=== PATIENT | male | born 1955 ===

== ENCOUNTER → 2021-01-26 06:53 | Outpatient (CLI) | payer OTHER ==
[~2021-01-26 06:53] MED LIST: SYNTHROID100 MCG PO; SYNTHROID112 MCG PO; TAMS0.4C PO
== END | disposition home or self-care (01) ==
LOC: LAB 06:53
PROVIDERS: ATTEND Urology
DX: R07.89 Other chest pain (principal); Z01.810 Encounter for preprocedural cardiovascular examination; I10 Essential (primary) hypertension; N40.1 Benign prostatic hyperplasia with lower urinary tract symptoms; D68.8 Other specified coagulation defects; N39.0 Urinary tract infection, site not specified; Z01.812 Encounter for preprocedural laboratory examination; Z01.811 Encounter for preprocedural respiratory examination